=== PATIENT | male | born 1995 | race Caucasian/White ===

== ENCOUNTER 2018-03-05 11:59 | Emergency (ER) | payer OTHER ==
[2018-03-05] MEDS: IPRATROPIUM (NEB) 0.5 MG/2.5 ML AMP HHN (14:12)
[2018-03-05] MEDS: ALBUTEROL 0.083% (NEB) 2.5 MG/3 ML AMP HHN (14:12)
[2018-03-05] MEDS: DEXAMETHASONE 10 MG/ML 1 ML INJ IM (14:17)
== END 2018-03-05 14:51 | disposition home or self-care (01) ==
LOC: FTE 11:59
DX: J45.901 Unspecified asthma with (acute) exacerbation (principal)
CPT/HCPCS: 71046; 94664; 96372; 99284-25

== ENCOUNTER 2019-05-30 18:11 | Emergency (ER) | payer OTHER ==
[2019-05-30] MEDS: ACETAMINOPHEN 325 MG TAB PO (20:59)
[2019-05-30] MEDS: DIPHTH/TET/ACEL PERTUSS (ADULT) 0.5 ML VIAL IM* (21:00)
[2019-05-30] MEDS: LIDOCAINE 1% (MDV) 20 ML INJ SC (21:43)
== END 2019-05-30 21:53 | disposition home or self-care (01) ==
LOC: FTE 18:11
DX: S60.455A Superficial foreign body of left ring finger, initial encounter (principal); W45.8XXA Other foreign body or object entering through skin, initial encounter; Y92.9 Unspecified place or not applicable; Z23 Encounter for immunization
CPT/HCPCS: 64450; 90471; 90715; 99283-25